=== PATIENT | male | born 1975 | race Hispanic/Latino ===

== ENCOUNTER 2024-09-02 10:06 | Emergency (ER) | payer OTHER ==
[2024-09-02 10:15] VITALS: PULSE 88; RESP 20; TEMP 98.2; O2SAT 98
[2024-09-02] MEDS ORDERED: VENTOLIN HFA18 GM INH (10:46)
[2024-09-02] MEDS ORDERED: IBUPROFEN800 MG PO (10:47)
== END 2024-09-02 10:55 | disposition home or self-care (01) ==
LOC: FSED 10:15
DX: U07.1 COVID-19 (principal); R50.9 Fever, unspecified; R05.9 Cough, unspecified; R51.9 Headache, unspecified
CPT/HCPCS: 0223U; 83518; 87400; 99284